=== PATIENT | female | born 1980 | race Caucasian/White ===

== ENCOUNTER → 2024-11-23 | Outpatient (CLI) | payer BC, SELFPAY ==
--- NOTE | 2024-11-23 08:02 | US_ITS ---
PROCEDURE: ABDOMEN LIMITED 11/23/2024 REASON FOR EXAM: CHECK MASS AREA LEFT BACK TECHNIQUE: Complete abdominal ultrasound galaviz-scale images with color doppler. PATIENT PREPARATION: Per protocol COMPARISON: None. FINDINGS: In the superficial soft tissues in the left lower back there is homogeneous isoechoic encapsulated lesion measuring 2.8 x 2.8 x 0.7 cm. The appearance and location are most consistent with lipoma. US/Abdomen Limited IMPRESSION: Lipoma at area of concern Reading Location: [facility]
== END | disposition home or self-care (01) ==
LOC: US 08:01
PROVIDERS: PCP Nurse Practitioner Family; Referring Provider Surgery; Visit Provider Surgery
DX: R22.2 Localized swelling, mass and lump, trunk (principal)
CPT/HCPCS: 76705